=== PATIENT | male | born 1950 | race Caucasian/White ===

== ENCOUNTER → 2020-05-05 09:37 | Outpatient (CLI) | payer MEDICARE, OTHER, SELFPAY ==
[2020-05-05 10:59] LABS: COVID19 -Nasal RAPID Negative (Negative)
== END ==
PROVIDERS: PCP Internal Medicine; Visit Provider Physician Assistant
DX: Z11.59 Encounter for screening for other viral diseases (principal)
CPT/HCPCS: 87635

== ENCOUNTER → 2020-05-22 12:31 | Outpatient (CLI) | payer MEDICARE, OTHER, SELFPAY ==
--- NOTE | 2020-05-22 | PATH_ITS ---
Note [facility] Accession Number: [id number] TESTS RESULT FLAG UNITS REF RANGE LAB Clinician Provided Cytology Information No. of containers..01 Other (Miscellaneous) 01 RIGHT LOWER QUARANT DIAGNOSIS: 02 RIGHT LOWER QUARANT NEGATIVE FOR MALIGNANT CELLS. THIS INTERPRETATION INCLUDES EVALUATION OF A CELL BLOCK. COMMENT: The cytospin preperation and cell block are of a mixed population of inflammatory cells and few mesothelail cells. No distinct epithelial cell population is seen. As part of routine plant quality manager, Dr. Franco has reviewed this case and agrees that there is no evidence of malignancy. Pathologist ICD10: 02 R18.8 02 Eduin Morrison MD, PhD, Pathologist NPI- [id number] Jeffrey Tirado, Allergist/[place] ([facility]) 01 50 CC, YELLOW, CLEAR RECEIVED: FRESH IN ORANGE CAP CONTAINER. /VDU 05/23/2020 0840 Local FLAG LEGEND: L-Low Normal,H-High Normal,LL-Alert Low,HH-Alert High <-Panic Low,>-Panic High,A-Abnormal,AA-Critical Abnormal Performed at: 01 =[facility] [address] [address], [place] [address] Juan Berkowitz MD, 02 L[facility] [address] [place] [address] Tara Franco MD, Performed at: 01 [facility] [address], [place], [place] [id number] MD Juan Berkowitz MD Phone: [phone]
--- NOTE | 2020-05-22 12:37 | DI.US.S_ITS ---
PROCEDURE: US PARACENTESIS INDICATIONS: Other malignant neuroendocrine tumors TECHNIQUE: The indications, alternatives, benefits, risks, and complications of the procedure were explained to the patient. Written informed consent was obtained and placed in the chart. The abdomen and pelvis were examined sonographically, and an appropriate site was chosen for paracentesis. The skin was prepared and draped in the usual sterile fashion, and 1% lidocaine was infiltrated from the skin down through the peritoneal surface. A 19-gauge catheter-covered needle was then introduced into the peritoneal space, the catheter was advanced and the needle was withdrawn, and thereafter peritoneal fluid was withdrawn. The catheter was then removed and a dressing was applied. The fluid was discarded if the clinician did not order diagnostic testing of the fluid. COMPARISON: None. FINDINGS: Access site: Right lower quadrant Needle: One-Step centesis catheter with introducer needle. Fluid volume and description: 7360 cubic centimeters yellowish clear fluid Fluid sent for diagnostic testing: More quest of ordering physician Medications: 1% lidocaine for local anaesthesia. Complications: None. IMPRESSION: Successful ultrasound-guided paracentesis. Dictated by: Tona Hinton MD, PhD on 05/22/2020 at 17:28 Approved by: Tona Hinton MD, PhD on 05/22/2020 at 17:29
== END ==
PROVIDERS: PCP Internal Medicine; Referring Provider Nurse Practitioner Adult Health; Visit Provider Nurse Practitioner Adult Health
DX: D3A.8 Other benign neuroendocrine tumors (principal)
CPT/HCPCS: 49083